=== PATIENT | male | born 1970 | race Caucasian/White ===

== ENCOUNTER 2022-07-30 13:18 | Inpatient (IN) | payer OTHER ==
[~2022-07-30] VITALS: Ht 188 cm; Wt 95.3 kg
[2022-07-30] MEDS ORDERED: ACETAMINOPHEN ES 500 MG TABLET PO ONE (13:30)
[2022-07-30] MEDS ORDERED: IV NS 0.9% 1,000 ML BAG IV ONE ×2 (13:30→16:00)
--- NOTE | 2022-07-30 13:30 | NUR ---
C/C SYNCOPE, PATIENT HAD FAINTED AT HOME. A/O X 3, ABLE TO MAKE NEEDS KNOWN
[2022-07-30] MEDS ORDERED: ACETAMINOPHEN ES 500 MG TABLET ONE (13:45)
[2022-07-30 14:27] LABS: BASOPHILS % (AUTO) 0.1 % (0.0-2.0); EOSINOPHILS % (AUTO) 0.9 % (0.0-6.0); HEMATOCRIT 51 % (39-51); HEMOGLOBIN 16.4 g/dL (13.5-17.5); LYMPHOCYTES # (AUTO) 2.1 K/uL (0.8-4.8); MEAN CORPUSCULAR HGB CONC 32 g/dl (31.0-36.0); MEAN CORPUSCULAR VOLUME 93 fL (80-96); MONOCYTES # (AUTO) 0.5 K/uL (0.1-1.30); MONOCYTES % (AUTO) 2.9 % (2.0-12.0); NEUTROPHILS # (AUTO) 13.6 K/uL (1.8-8.9); NEUTROPHILS % (AUTO) 83.1 % (43.0-81.0); PLATELET COUNT (AUTO) 205 K/uL (150-450); RED BLOOD CELL COUNT(AUTO) 5.44 MIL/uL (4.5-6.0); WHITE BLOOD COUNT (AUTO) 16.3 K/uL (4.3-11.0)
[2022-07-30 14:46] LABS: CALCIUM, SERUM 8.4 mg/dL (8.5-10.1); CARBON DIOXIDE 20 mmol/L (21-32); CHLORIDE 105 mmol/L (98-107); CREATININE 1.8 mg/dL (0.6-1.3); GLUCOSE 172 mg/dL (74-106); POTASSIUM 4.2 mmol/L (3.5-5.1); SODIUM SERUM 137 mmol/L (136-145); UREA NITROGEN, BLOOD 16 mg/dL (7-18)
[2022-07-30 14:51] LABS: ALANINE AMINOTRANSFERASE 15 U/L (12-78); ALBUMIN 3.5 g/dL (3.4-5.0); ALKALINE PHOSPHATASE 88 U/L (46-116); ASPARTATE AMINOTRANSFERASE 20 U/L (15-37); BILIRUBIN,DIRECT 0.2 mg/dL (0.0-0.2); BILIRUBIN,TOTAL 0.4 mg/dL (0.2-1.0); TOTAL PROTEIN, SERUM 6.5 g/dL (6.4-8.2)
[2022-07-30] MEDS ORDERED: VANCOMYCIN 1 GM in IV D5W 250 ML IV ONE (15:00)
[2022-07-30] MEDS ORDERED: PIPERACILLIN /TAZOBACTAM 3.375 G in IV D5W 50 ML IV ONE (15:00)
[2022-07-30] MEDS ORDERED: TERA2CAP4 PO (15:52)
[2022-07-30] MEDS ORDERED: PREG-57 PO (15:52)
--- NOTE | 2022-07-30 16:26 | NUR ---
COVID SWAB COLLECTED AND SENT TO LAB
--- NOTE | 2022-07-30 17:27 | NUR ---
LAB CALLED FOR COVID TEST POSITIVE. DR KESSLER AWARE.
--- NOTE | 2022-07-30 18:40 | NUR ---
URINE SAMPLE OBTAINED
[2022-07-30] MEDS ORDERED: MAG HYDROX/AL HYDROX/SIMETH 30 ML UDC PO PRN (19:00)
[2022-07-30] MEDS ORDERED: Z GUARD REMEDY 4 OZ OINT TP PRN (19:00)
[2022-07-30] MEDS ORDERED: ONDANSETRON HCL/PF 4 MG/2 ML VIAL IVP PRN (19:00)
[2022-07-30] MEDS ORDERED: ENOXAPARIN SODIUM 40 MG/0.4 ML DISP.SYRIN SQ ONE ×2 (19:00→22:12)
[2022-07-30] MEDS ORDERED: IV NS 0.9% 1,000 ML IV PRN (19:00)
[2022-07-30] MEDS ORDERED: ACETAMINOPHEN 325 MG TABLET PO PRN (19:00)
[2022-07-30] MEDS ORDERED: MAGNESIUM HYDROXIDE 30 ML UDC PO PRN (19:00)
--- NOTE | 2022-07-30 19:27 | NUR ---
COVID PCR SWAB OBTAINED
--- NOTE | 2022-07-30 19:34 | NUR ---
RAPID INFLUENZA SWAB TAKEN
[2022-07-30 19:55] LABS: BILIRUBIN,URINE NEGATIVE (NEGATIVE); COLOR,URINE YELLOW (YELLOW); LEUKOCYTE ESTERASE ,URINE NEGATIVE (NEGATIVE); NITRITE, URINE NEGATIVE (NEGATIVE); PROTEIN,URINE 1+ mg/dl (NEGATIVE); UGLUCOSE NEGATIVE (NEGATIVE); UROBILINOGEN,URINE 0.2 EU/dL (0.2)
--- NOTE | 2022-07-30 19:58 | NUR ---
RECEIVED PT IN ER BED 8. PT IS ALERT AND ORIENTED. RR EVEN AND NON LABORED, CONNECTED TO O2 VIA NASAL CANNULA 4L O2SAT 98%. PT DENIES ANY DISCOMFORT AT THIS TIME. CONITNUES TO BE ON MONITOR, VSS.
[2022-07-30 20:12] LABS: BACTERIA,URINE None seen /HPF (None Seen); MUCUS,URINE Few /LPF (None Seen); RBC,URINE 0-2 /HPF (0-2); WBC,URINE 0-2 /HPF (0-3)
[2022-07-30 21:14] LABS: BAND % (MANUAL) 10 % (0.0-5.0); EOSINOPHILS % (MANUAL) 1 % (0-4); LYMPHOCYTES % (MANUAL) 13 % (16-48); METAMYELOCYTES % 1 % (0-0); MONOCYTES % (MANUAL) 1 % (0-11.0); NEUTROPHILS % (MANUAL) 74 (42-76)
--- NOTE | 2022-07-30 21:15 | NUR ---
REPORT GIVEN TO ISABELLA PRICE FOR MANSOOR
[2022-07-30] MEDS ORDERED: PIPERACILLIN /TAZOBACTAM 3.375 G VIAL IV ONE (22:12)
[2022-07-30] MEDS: ZOSYN IVPB 3.375 G in IV D5W 50ml IV SCH (22:28)
--- NOTE | 2022-07-30 22:30 | NUR ---
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 PT IS AWAKE, AMBULATORY, A/0 X 4 AND ABLE TO VERBALIZE NEEDS. PT IS ON O2 THERAPY VIA NC @ 2 LPM. NO S/SX OF ACUTE RESPI DISTRESS NOTED AT THIS TIME. NO SOB, BREATHING IS EVEN AND UNLABORED. WINDOW SASH INSTALLER READS NSR, HR IN 80s. IV ACCESS NOTED ON RAC #20g WITH NS RUNNING @ 75 CC/HR. SKIN IS INTACT. PT PLACED ON ISOLATION PRECS. ALL SAFETY MEASURES IN PLACE: BED LOCKED IN LOW POSITION, SR UP X 2, CALL LIGHT WITHIN REACH. WILL CONTINUE TO MONITOR PT.
[2022-07-30 22:32] VITALS: BP 113/63
[2022-07-31] VITALS: BP 104/69
[2022-07-31 01:00] VITALS: BP 104/69
[2022-07-31] MEDS ORDERED: PIPERACILLIN /TAZOBACTAM 3.375 G VIAL IV ONE (03:42)
[2022-07-31] MEDS: ZOSYN IVPB 3.375 G in IV D5W 50ml IV SCH (03:51)
[2022-07-31 04:00] VITALS: BP 128/85
[2022-07-31 06:02] VITALS: BP 128/85
--- NOTE | 2022-07-31 06:41 | NUR ---
RN NOTE NO SIGNIFICANT CHANGE T/O THE NIGHT. PT REMAINS STABLE. ALL DUE MEDS GIVEN. NEEDS MET. WILL ENDORSE TO AM SHIFT NURSE FOR MANSOOR.
--- NOTE | 2022-07-31 07:00 | NUR ---
RN NOTE RECEIVED PATIENT IN BED RESTING ALERT ORIENTED X4 VERBALLY RESPONSIVE,COVID ISOLATION,IV SITE IS ON RIGHT AC INTACT PATENT ON IV HYDRATION NS 75CC/HR,AMBULATORY,CONTIENT BOWEL/BLADDER,SAFETY MEASURE IMPALEMENT,BED IN LOW POSITION AND LOCKED,CALL LIGHT WITHIN REACH,HEAD OF THE BED ELEVATED,CONTINUE TO MONITOR.
[2022-07-31 07:03] LABS: BASOPHILS % (AUTO) 0.1 % (0.0-2.0); EOSINOPHILS % (AUTO) 0.4 % (0.0-6.0); HEMATOCRIT 43 % (39-51); HEMOGLOBIN 14.1 g/dL (13.5-17.5); LYMPHOCYTES # (AUTO) 0.8 K/uL (0.8-4.8); LYMPHOCYTES % (AUTO) 9.4 % (20.0-44.0); MEAN CORPUSCULAR HGB CONC 33 g/dl (31.0-36.0); MEAN CORPUSCULAR VOLUME 91 fL (80-96); MONOCYTES # (AUTO) 0.6 K/uL (0.1-1.30); MONOCYTES % (AUTO) 7.1 % (2.0-12.0); PLATELET COUNT (AUTO) 148 K/uL (150-450); RED BLOOD CELL COUNT(AUTO) 4.68 MIL/uL (4.5-6.0); WHITE BLOOD COUNT (AUTO) 8.4 K/uL (4.3-11.0)
[2022-07-31 07:31] LABS: CALCIUM, SERUM 7.9 mg/dL (8.5-10.1); CREATININE 1.4 mg/dL (0.6-1.3); MAGNESIUM 1.7 mg/dL (1.8-2.4); PHOSPHORUS 3.2 mg/dL (2.5-4.9); POTASSIUM 3.8 mmol/L (3.5-5.1)
[2022-07-31 08:00] VITALS: BP 129/86
[2022-07-31] MEDS ORDERED: PREGABALIN 25 MG CAPSULE PO SCH (09:00)
--- NOTE | 2022-07-31 09:00 | NUR ---
RN NOTE PATIENT REFUSED TO TAKE LYRICA 50 MG CONTINUE TO MONITOR.
[2022-07-31] MEDS: Magnesium 1GM/D5W 100ML PREMIX 100 ML IV SCH ×2 (09:59→11:04)
[2022-07-31] MEDS ORDERED: AZIT1PAC9 PO (10:11)
[2022-07-31] MEDS ORDERED: APIX2.5T PO (10:11)
[2022-07-31 12:00] VITALS: BP 140/83
[2022-07-31] MEDS ORDERED: ZOSYN IVPB 3.375 G in IV D5W 50ml IV SCH (12:00)
--- NOTE | 2022-07-31 12:00 | NUR ---
RN NOTE PATIENT REFUSED ZOSYN AT 1200 PM CONTINUE TO MONITOR.
--- NOTE | 2022-07-31 12:42 | NUR ---
GENERAL SURGEON NOTE PATIENT DISCHARGE HOME IN STABLE CONDITION,ALERT ORIENTED X4 VERBALLY RESPONSIVE NO SOB NOT ACUTE DISTRESS NOTED,ON ROOM AIR O2:98%,IV SITE REMOVED NO BLEEDING NOTED,NO PAIN AT THIS TIME,EDUCATION PROVIDED REGARDING MEDS,HE VERBALIZED UNDERSTOOD ALL TEACHING,PATIENT LEFT HOSPITAL IN STABLE CONDITION,WITH HIS BY PRIVATE CAR
== END 2022-07-31 12:25 | disposition home or self-care (01) | DRG 720 ==
LOC: ER 13:23 → TELE1 21:09
PROVIDERS: ADMIT Internal Medicine; ATTEND Internal Medicine
DX: A41.89 Other specified sepsis (principal); N17.0 Acute kidney failure with tubular necrosis; U07.1 COVID-19; E87.20 Acidosis, unspecified; I10 Essential (primary) hypertension; Z79.899 Other long term (current) drug therapy; E86.0 Dehydration; E86.1 Hypovolemia; I95.1 Orthostatic hypotension; N40.0 Benign prostatic hyperplasia without lower urinary tract symptoms
CPT/HCPCS: 36415; 71045-TC; 80048-TC; 80076-TC; 81001; 83605-TC; 83735-TC; 84100-TC; 84484-TC; 85025-TC; 85378-TC; 86140-TC; 87040-TC; 87081-TC; 87086-TC; 93307-TC; 93970-TC; A4223; C9803; G0378; J1650; J2543; J3370; J3475; J7030; J7060; U0003